=== PATIENT | female | born 1960 | race African-American/Black ===

== ENCOUNTER 2017-07-18 08:57 | Emergency (ER) | payer OTHER ==
[~2017-07-18] VITALS: Ht 167.6 cm; Wt 63.5 kg
[2017-07-18 12:48] LABS: HEMATOCRIT 34.3 % (36.0-46.0); HEMOGLOBIN 11.2 G/DL (11.9-15.5); MCH 30.9 PG (29.0-34.0); MCHC 32.7 G/DL (30.0-36.0); MCV 94.5 FL (83-99); PLATELET COUNT 311 K/uL (156-360); RBC DIS.WIDTH-CV 14.5 % (11.8-14.6); RBC DIS.WIDTH-SD 50.4 % (39-53); RED BLOOD COUNT 3.63 M/uL (3.80-5.20); WHITE BLOOD COUNT 18.4 K/uL (4.1-10.2)
[2017-07-18 13:00] LABS: CHLORIDE 107 mEq/L (99-109); POTASSIUM 4.6 mEq/L (3.7-5.4); SODIUM 141 mEq/L (136-147)
[2017-07-18] MEDS ORDERED: IMITREX6 MG/0.5 M SC (13:01)
[2017-07-18 13:02] LABS: GLUCOSE 120 mg/dL (70-99)
[2017-07-18] MEDS ORDERED: REGLAN5 MG PO (13:02)
[2017-07-18 13:06] LABS: GFR ESTIMATE (CALCULATED) > 59 mL/min/
[2017-07-18 13:07] LABS: UREA NITROGEN (BUN) 16 mg/dL (9-23)
[2017-07-18 13:39] VITALS: BP 112/67
== END 2017-07-18 13:41 | disposition home or self-care (01) ==
LOC: EME 08:57
PROVIDERS: Nurse Practitioner Family
DX: G43.909 Migraine, unspecified, not intractable, without status migrainosus (principal); E78.5 Hyperlipidemia, unspecified; M06.9 Rheumatoid arthritis, unspecified; M79.7 Fibromyalgia; F41.9 Anxiety disorder, unspecified; R73.03 Prediabetes; F17.200 Nicotine dependence, unspecified, uncomplicated; Z88.6 Allergy status to analgesic agent
CPT/HCPCS: 80048; 85027; 99281; 99285; J1200; J1885; J2765; J3030; J7030

== ENCOUNTER 2017-07-22 09:26 | Inpatient (IN) | payer OTHER ==
[~2017-07-22] VITALS: Ht 167.6 cm; Wt 63.4 kg
[~2017-07-22 09:26] MED LIST: IMITREX6 MG/0.5 M SC; REGLAN5 MG PO
[2017-07-22 10:56] LABS: AMPHETAMINE NEGATIVE (500 ng/mL); BARBITURATES NEGATIVE (200 ng/mL); BENZODIAZEPINES NEGATIVE (150 ng/mL); BUPRENORPHINE NEGATIVE (10 ng/mL); COCAINE NEGATIVE (150 ng/mL); METHADONE NEGATIVE (200 ng/mL); METHAMPHETAMINE NEGATIVE (500 ng/mL); OPIATES (MORPHINE) NEGATIVE (100 ng/mL); OXYCODONE NEGATIVE (100 ng/mL); PHENCYCLIDINE NEGATIVE (25 ng/mL); PROPOXYPHENE NEGATIVE (300 ng/mL); THC CANNABINOIDS NEGATIVE (50 ng/mL); TRICYCLIC ANTIDEPRESSANTS NEGATIVE (300 ng/mL)
[2017-07-22 11:03] LABS: APPEARANCE CLEAR ((CLEAR)); BILIRUBIN NEGATIVE; BLOOD NEGATIVE; COLOR YELLOW ((YELLOW)); GLUCOSE (STRIP) NEGATIVE; KETONES NEGATIVE; LEUKOCYTES NEGATIVE; NITRITE NEGATIVE; PROTEIN (STRIP) NEGATIVE; SPECIFIC GRAVITY 1.005 (1.000-1.030)
[2017-07-22 11:05] LABS: HEMATOCRIT 30.4 % (36.0-46.0); HEMOGLOBIN 10.2 G/DL (11.9-15.5); MCH 30.8 PG (29.0-34.0); MCHC 33.6 G/DL (30.0-36.0); MCV 91.8 FL (83-99); PLATELET COUNT 273 K/uL (156-360); RBC DIS.WIDTH-CV 14.6 % (11.8-14.6); RBC DIS.WIDTH-SD 49.3 % (39-53); RED BLOOD COUNT 3.31 M/uL (3.80-5.20); WHITE BLOOD COUNT 19.6 K/uL (4.1-10.2)
[2017-07-22 11:16] LABS: ALBUMIN 3.9 g/dL (3.2-4.8); CHLORIDE 104 mEq/L (99-109); POTASSIUM 4.2 mEq/L (3.7-5.4); SODIUM 137 mEq/L (136-147)
[2017-07-22 11:18] LABS: GLUCOSE 110 mg/dL (70-99); TOTAL PROTEIN 6.7 g/dL (6.4-8.3)
[2017-07-22 11:20] LABS: TOTAL BILIRUBIN 0.5 mg/dL (0.0-1.0)
[2017-07-22 11:21] LABS: SERUM ETHYL ALCOHOL < 10 mg/dL
[2017-07-22 11:22] LABS: ALKALINE PHOSPHATASE 100 IU/L (3-129); CREATININE 1.1 mg/dL (0.6-1.3); GFR ESTIMATE (CALCULATED) > 59 mL/min/
[2017-07-22 11:23] LABS: AST (GOT) 27 IU/L (2-34); UREA NITROGEN (BUN) 19 mg/dL (9-23)
[2017-07-22 11:25] LABS: ALT (GPT) 18 IU/L (3-49)
[2017-07-22] MEDS ORDERED: ZOFRAN4 MG PO (15:01)
[2017-07-22] MEDS ORDERED: BACLOFEN10 MG PO (15:01)
[2017-07-22] MEDS ORDERED: TOPAMAX25 M1 PO (15:01)
[2017-07-22] MEDS ORDERED: REGLAN5 MG PO (15:01)
[2017-07-22] MEDS ORDERED: GABAPENTIN800 MG PO (15:02)
[2017-07-22] MEDS ORDERED: LAMICTAL25 MG PO ×2 (15:02)
[2017-07-22] MEDS ORDERED: ATARAX,VISTARIL50 MG PO (15:02)
[2017-07-22] MEDS ORDERED: CATAPRES0.1 MG PO (15:02)
[2017-07-22] MEDS ORDERED: PREDNISONE5 MG PO (15:03)
[2017-07-22] MEDS ORDERED: SEROQUEL300 MG PO (15:03)
[2017-07-22] MEDS ORDERED: COLACE100 MG PO (15:03)
[2017-07-22] MEDS ORDERED: SULFASALAZINE500 MG PO (15:03)
[2017-07-22] MEDS ORDERED: VITAMIN D10000 UNIT PO (15:03)
[2017-07-22] MEDS ORDERED: CYMBALTA60 MG PO (15:03)
[2017-07-22 21:18] VITALS: BP 107/58
[2017-07-22 23:30] VITALS: BP 98/54
[2017-07-23 03:50] VITALS: BP 100/55
[2017-07-23 06:51] LABS: HEMATOCRIT 32.7 % (36.0-46.0); HEMOGLOBIN 10.3 G/DL (11.9-15.5); MCH 30.2 PG (29.0-34.0); MCHC 31.5 G/DL (30.0-36.0); PLATELET COUNT 265 K/uL (156-360); RBC DIS.WIDTH-CV 14.8 % (11.8-14.6); RBC DIS.WIDTH-SD 51.6 % (39-53); RED BLOOD COUNT 3.41 M/uL (3.80-5.20); WHITE BLOOD COUNT 19.6 K/uL (4.1-10.2)
[2017-07-23 06:52] LABS: MCV 95.9 FL (83-99)
[2017-07-23 07:12] LABS: CHLORIDE 109 MEQ/L (99-109); CREATININE 0.9 MG/DL (0.6-1.3); GFR ESTIMATE (CALCULATED) > 59 mL/min/; GLUCOSE 132 mg/dL (70-99); SODIUM 141 MEQ/L (136-147); UREA NITROGEN (BUN) 17 mg/dL (9-23)
[2017-07-23 07:42] LABS: ERTH.SED.RATE 64 MM/HR (0-30)
[2017-07-23 07:44] VITALS: BP 131/55
[2017-07-23] MEDS ORDERED: BACLOFEN10 MG PO (08:24)
[2017-07-23 11:37] VITALS: BP 113/76
[2017-07-23 15:27] VITALS: BP 116/56
[2017-07-23 19:12] VITALS: BP 114/58
[2017-07-24 04:16] VITALS: BP 123/60
[2017-07-24 07:01] VITALS: BP 123/67
[2017-07-24 11:32] VITALS: BP 117/57
[2017-07-24 15:20] VITALS: BP 134/60
[2017-07-24 19:15] VITALS: BP 134/61
[2017-07-24 23:02] VITALS: BP 139/62
[2017-07-25 03:02] VITALS: BP 104/60
[2017-07-25 09:00] VITALS: BP 138/88
[2017-07-25 11:40] LABS: HEMATOCRIT 32.6 % (36.0-46.0); HEMOGLOBIN 10.8 G/DL (11.9-15.5); MCH 30.9 PG (29.0-34.0); MCHC 33.1 G/DL (30.0-36.0); MCV 93.1 FL (83-99); PLATELET COUNT 311 K/uL (156-360); RBC DIS.WIDTH-CV 14.6 % (11.8-14.6); RBC DIS.WIDTH-SD 50.1 % (39-53); WHITE BLOOD COUNT 15.6 K/uL (4.1-10.2)
[2017-07-25 12:07] LABS: ALBUMIN 3.6 G/DL (3.2-4.8); ALKALINE PHOSPHATASE 105 IU/L (3-129); ALT (GPT) 9 IU/L (3-49); AST (GOT) 9 IU/L (2-34); CHLORIDE 104 MEQ/L (99-109); CREATININE 0.8 MG/DL (0.6-1.3); GFR ESTIMATE (CALCULATED) > 59 mL/min/; GLUCOSE 120 mg/dL (70-99); POTASSIUM 4.3 MEQ/L (3.7-5.4); SODIUM 140 MEQ/L (136-147); TOTAL BILIRUBIN 0.3 MG/DL (0.0-1.0); TOTAL PROTEIN 6.5 G/DL (6.4-8.3); UREA NITROGEN (BUN) 12 mg/dL (9-23)
[2017-07-25 15:48] VITALS: BP 121/61
[2017-07-25 19:18] VITALS: BP 118/64
[2017-07-25 23:38] VITALS: BP 140/65
[2017-07-26 07:36] VITALS: BP 134/73
[2017-07-26] MEDS ORDERED: NICOTINE PATCH1 EAC2 TD (15:21)
[2017-07-26] MEDS ORDERED: CEFTIN500 MG PO (15:21)
== END 2017-07-26 15:43 | disposition home or self-care (01) | DRG 194 ==
LOC: EME 09:26 → 2EAST 17:40 → EDOF 17:40 → ENRESERV 18:17 → 2EAST 19:40
PROVIDERS: Emergency Medicine; Internal Medicine
DX: J18.9 Pneumonia, unspecified organism (principal); F33.9 Major depressive disorder, recurrent, unspecified; G89.4 Chronic pain syndrome; I10 Essential (primary) hypertension; D64.9 Anemia, unspecified; M06.9 Rheumatoid arthritis, unspecified; M79.7 Fibromyalgia; G43.909 Migraine, unspecified, not intractable, without status migrainosus; F41.0 Panic disorder [episodic paroxysmal anxiety]; E78.5 Hyperlipidemia, unspecified; Z90.710 Acquired absence of both cervix and uterus; F17.200 Nicotine dependence, unspecified, uncomplicated; J90 Pleural effusion, not elsewhere classified; Z82.5 Family history of asthma and other chronic lower respiratory diseases
CPT/HCPCS: 70450; 71010; 71020; 71046; 80048; 80053; 81003; 85027; 85651; 86430; 87070; 87086; 87205; 87502; 93005; 94640; 94640 76; 94799; 99281; 99285; G0480; J0456; J0696; J1885; J1956; J3030; J7030; J7512; Q0177

== ENCOUNTER 2017-08-11 17:15 | Emergency (ER) | payer OTHER ==
[~2017-08-11] VITALS: Ht 167.6 cm; Wt 64.7 kg
[~2017-08-11 17:15] MED LIST changes: +ATARAX,VISTARIL50 MG PO; +BACLOFEN10 MG PO; +CATAPRES0.1 MG PO; +CEFTIN500 MG PO; +COLACE100 MG PO; +CYMBALTA60 MG PO; +GABAPENTIN800 MG PO; +LAMICTAL25 MG PO; +NICOTINE PATCH1 EAC2 TD; +PREDNISONE5 MG PO; +SEROQUEL300 MG PO; +SULFASALAZINE500 MG PO; +TOPAMAX25 M1 PO; +VITAMIN D10000 UNIT PO; +ZOFRAN4 MG PO
[2017-08-11] MEDS ORDERED: IMITREX6 MG/0.52 SC (18:42)
[2017-08-11] MEDS ORDERED: BACLOFEN10 MG PO (18:42)
[2017-08-11 19:06] VITALS: BP 118/82
== END 2017-08-11 19:06 | disposition home or self-care (01) ==
LOC: EME 17:15
DX: G43.109 Migraine with aura, not intractable, without status migrainosus (principal); M06.9 Rheumatoid arthritis, unspecified; Z76.0 Encounter for issue of repeat prescription; Z88.6 Allergy status to analgesic agent
CPT/HCPCS: 99281; 99284; J3030

== ENCOUNTER 2017-08-23 08:50 | Emergency (ER) | payer OTHER ==
[~2017-08-23] VITALS: Ht 170.2 cm; Wt 67.2 kg
[~2017-08-23 08:50] MED LIST changes: +IMITREX6 MG/0.52 SC
[2017-08-23 09:33] LABS: HEMATOCRIT 35.8 % (36.0-46.0); HEMOGLOBIN 11.6 G/DL (11.9-15.5); MCH 31.2 PG (29.0-34.0); MCHC 32.4 G/DL (30.0-36.0); MCV 96.2 FL (83-99); PLATELET COUNT 316 K/uL (156-360); RBC DIS.WIDTH-CV 16.2 % (11.8-14.6); RBC DIS.WIDTH-SD 56.5 % (39-53); RED BLOOD COUNT 3.72 M/uL (3.80-5.20); WHITE BLOOD COUNT 16.2 K/uL (4.1-10.2)
[2017-08-23 09:43] LABS: ALBUMIN 4.8 g/dL (3.2-4.8); CHLORIDE 108 mEq/L (99-109); POTASSIUM 3.7 mEq/L (3.7-5.4); SODIUM 141 mEq/L (136-147)
[2017-08-23 09:45] LABS: GLUCOSE 79 mg/dL (70-99); TOTAL PROTEIN 8.7 g/dL (6.4-8.3)
[2017-08-23 09:47] LABS: TOTAL BILIRUBIN 0.3 mg/dL (0.0-1.0)
[2017-08-23 09:49] LABS: ALKALINE PHOSPHATASE 109 IU/L (3-129); CREATININE 1.1 mg/dL (0.6-1.3); GFR ESTIMATE (CALCULATED) > 59 mL/min/
[2017-08-23 09:50] LABS: AST (GOT) 19 IU/L (2-34); UREA NITROGEN (BUN) 17 mg/dL (9-23)
[2017-08-23 09:52] LABS: ALT (GPT) 27 IU/L (3-49)
[2017-08-23 12:51] LABS: APPEARANCE CLEAR ((CLEAR)); BILIRUBIN NEGATIVE; BLOOD NEGATIVE; COLOR YELLOW ((YELLOW)); GLUCOSE (STRIP) NEGATIVE; KETONES NEGATIVE; LEUKOCYTES NEGATIVE; NITRITE NEGATIVE; PROTEIN (STRIP) NEGATIVE; SPECIFIC GRAVITY 1.015 (1.000-1.030); UCUL ADDED? NO; UROBILINOGEN 0.2 MG/DL (0.2-1.0)
[2017-08-23] MEDS ORDERED: BACLOFEN10 MG PO (13:34)
[2017-08-23 13:40] VITALS: BP 121/57
== END 2017-08-23 13:47 | disposition home or self-care (01) ==
LOC: EME 08:50
DX: R51 Headache (principal); M54.5 Low back pain; M79.7 Fibromyalgia; M06.9 Rheumatoid arthritis, unspecified; E78.5 Hyperlipidemia, unspecified; F41.9 Anxiety disorder, unspecified; R73.03 Prediabetes; F17.200 Nicotine dependence, unspecified, uncomplicated; Z88.6 Allergy status to analgesic agent
CPT/HCPCS: 71046; 80053; 81003; 85027; 99281; 99284; J1885; J2765

== ENCOUNTER 2017-09-13 15:12 | Emergency (ER) | payer OTHER ==
[~2017-09-13] VITALS: Ht 167.6 cm; Wt 67.4 kg
[2017-09-13 16:50] LABS: APPEARANCE CLEAR ((CLEAR)); BILIRUBIN NEGATIVE; BLOOD NEGATIVE; COLOR YELLOW ((YELLOW)); GLUCOSE (STRIP) NEGATIVE; KETONES NEGATIVE; LEUKOCYTES NEGATIVE; NITRITE NEGATIVE; PROTEIN (STRIP) 30; SPECIFIC GRAVITY 1.026 (1.000-1.030); UCUL ADDED? NO; UROBILINOGEN 0.2 MG/DL (0.2-1.0)
[2017-09-13 17:12] LABS: HEMATOCRIT 34.7 % (36.0-46.0); HEMOGLOBIN 11.4 G/DL (11.9-15.5); MCH 31.5 PG (29.0-34.0); MCHC 32.9 G/DL (30.0-36.0); MCV 95.9 FL (83-99); PLATELET COUNT 368 K/uL (156-360); RBC DIS.WIDTH-CV 16.6 % (11.8-14.6); RBC DIS.WIDTH-SD 58.5 % (39-53); RED BLOOD COUNT 3.62 M/uL (3.80-5.20); WHITE BLOOD COUNT 12.5 K/uL (4.1-10.2)
[2017-09-13 17:32] LABS: ALBUMIN 4.5 G/DL (3.2-4.8); ALKALINE PHOSPHATASE 86 IU/L (3-129); ALT (GPT) 14 IU/L (3-49); AST (GOT) 18 IU/L (2-34); CHLORIDE 108 MEQ/L (99-109); CREATININE 1.1 MG/DL (0.6-1.3); DIRECT BILIRUBIN 0.1 mg/dL (0.0-0.3); GFR ESTIMATE (CALCULATED) > 59 mL/min/; GLUCOSE 100 mg/dL (70-99); LIPASE 4 U/L (1.0-51.0); SODIUM 141 MEQ/L (136-147); TOTAL BILIRUBIN 0.3 MG/DL (0.0-1.0); TOTAL PROTEIN 7.4 G/DL (6.4-8.3); UREA NITROGEN (BUN) 14 mg/dL (9-23)
[2017-09-13] MEDS ORDERED: ZOFRAN ODT8 MG PO (19:58)
[2017-09-13] MEDS ORDERED: FLONASE16 G1 BOTH NARES (19:58)
[2017-09-13] MEDS ORDERED: MUCINEX D ER T1 EACH PO (19:58)
[2017-09-13] MEDS ORDERED: BENTYL20 MG PO (19:58)
[2017-09-13] MEDS ORDERED: IMITREX6 MG/0.53 SC (19:58)
[2017-09-13] MEDS ORDERED: ZANTAC300 MG PO (20:02)
[2017-09-13] MEDS ORDERED: CEFDINIR300 MG PO (20:04)
[2017-09-13 20:26] VITALS: BP 123/84
== END 2017-09-13 20:27 | disposition home or self-care (01) ==
LOC: EME 15:12
DX: R10.9 Unspecified abdominal pain (principal); R11.0 Nausea; R19.7 Diarrhea, unspecified; G43.909 Migraine, unspecified, not intractable, without status migrainosus; M79.7 Fibromyalgia; M06.9 Rheumatoid arthritis, unspecified; E78.5 Hyperlipidemia, unspecified; R73.03 Prediabetes; F41.9 Anxiety disorder, unspecified; F17.200 Nicotine dependence, unspecified, uncomplicated; Z90.710 Acquired absence of both cervix and uterus; Z88.6 Allergy status to analgesic agent
CPT/HCPCS: 74177; 76705; 80053; 81003; 82248; 83690; 85027; 87651 90; 99281; 99285; J1200; J1885; J2765; J2930; J3030; J7120

== ENCOUNTER 2017-11-28 10:34 | Emergency (ER) | payer OTHER ==
[~2017-11-28] VITALS: Ht 167.6 cm; Wt 74.2 kg
[~2017-11-28 10:34] MED LIST changes: +BENTYL20 MG PO; +CEFDINIR300 MG PO; +FLONASE16 G1 BOTH NARES; +IMITREX6 MG/0.53 SC; +MUCINEX D ER T1 EACH PO; +ZANTAC300 MG PO; +ZOFRAN ODT8 MG PO
[2017-11-28] MEDS ORDERED: REGLAN10 MG PO (12:28)
[2017-11-28] MEDS ORDERED: IMITREX25 MG PO (12:28)
[2017-11-28 14:31] VITALS: BP 145/76
== END 2017-11-28 14:32 | disposition home or self-care (01) ==
LOC: EME 10:34
DX: G43.909 Migraine, unspecified, not intractable, without status migrainosus (principal); E78.5 Hyperlipidemia, unspecified; R73.03 Prediabetes; M79.7 Fibromyalgia; M06.9 Rheumatoid arthritis, unspecified; F17.200 Nicotine dependence, unspecified, uncomplicated; F41.9 Anxiety disorder, unspecified; F41.0 Panic disorder [episodic paroxysmal anxiety]; Z88.6 Allergy status to analgesic agent
CPT/HCPCS: 99281; 99284; J2765; J3030; J7030

== ENCOUNTER 2017-12-07 14:51 | Emergency (ER) | payer OTHER ==
[~2017-12-07] VITALS: Ht 167.6 cm; Wt 72.0 kg
[~2017-12-07 14:51] MED LIST changes: +IMITREX25 MG PO; +REGLAN10 MG PO
[2017-12-07 15:55] VITALS: BP 122/108
== END 2017-12-07 16:03 | disposition home or self-care (01) ==
LOC: EXP 14:51 → EME 14:51 → EXP 16:03
PROC: 2W3DX1Z Immobilization of Left Lower Arm using Splint (ICD-10-PCS; principal; 2017-12-07)
DX: M62.838 Other muscle spasm (principal); M54.12 Radiculopathy, cervical region; Z88.6 Allergy status to analgesic agent
CPT/HCPCS: 99281; 99284; J2060; J8540

== ENCOUNTER 2018-02-25 18:53 | Inpatient (IN) | payer OTHER ==
[~2018-02-25] VITALS: Ht 167.6 cm; Wt 73.9 kg
[2018-02-25 19:31] LABS: HEMATOCRIT 30.8 % (36.0-46.0); HEMOGLOBIN 10.6 G/DL (11.9-15.5); MCH 32.5 PG (29.0-34.0); MCHC 34.4 G/DL (30.0-36.0); MCV 94.5 FL (83-99); PLATELET COUNT 218 K/uL (156-360); RBC DIS.WIDTH-CV 15.9 % (11.8-14.6); RBC DIS.WIDTH-SD 55.2 % (39-53); RED BLOOD COUNT 3.26 M/uL (3.80-5.20); WHITE BLOOD COUNT 11.3 K/uL (4.1-10.2)
[2018-02-25 20:02] LABS: ACETAMINOPHEN (TYLENOL) < 10 MCG/ML (10-30); CHLORIDE 108 MEQ/L (99-109); CREATININE 1.4 MG/DL (0.6-1.3); GFR ESTIMATE (CALCULATED) 50 mL/min/; GLUCOSE 107 mg/dL (70-99); POTASSIUM 4.8 MEQ/L (3.7-5.4); SALICYLATE < 3.0 MG/DL (15-30); SERUM ETHYL ALCOHOL < 10 mg/dL; SODIUM 141 MEQ/L (136-147); UREA NITROGEN (BUN) 17 mg/dL (9-23)
[2018-02-25 20:15] LABS: AMPHETAMINE NEGATIVE (500 ng/mL); BARBITURATES NEGATIVE (200 ng/mL); BENZODIAZEPINES NEGATIVE (150 ng/mL); BUPRENORPHINE NEGATIVE (10 ng/mL); COCAINE NEGATIVE (150 ng/mL); METHADONE NEGATIVE (200 ng/mL); METHAMPHETAMINE NEGATIVE (500 ng/mL); OPIATES (MORPHINE) NEGATIVE (100 ng/mL); OXYCODONE NEGATIVE (100 ng/mL); PHENCYCLIDINE NEGATIVE (25 ng/mL); PROPOXYPHENE NEGATIVE (300 ng/mL); THC CANNABINOIDS NEGATIVE (50 ng/mL); TRICYCLIC ANTIDEPRESSANTS NEGATIVE (300 ng/mL)
[2018-02-26 00:54] LABS: HDL CHOLESTEROL 95 MG/DL (Desirable>=50); LDL CHOLESTEROL 144 mg/dL (Desirable<100); NON-HDL CHOLESTEROL 156 mg/dL (Desirable<160); TOTAL CHOLESTEROL 251 mg/dL (Desirable<200); TRIGLYCERIDES 60 MG/DL (Normal: <150)
[2018-02-26 00:56] VITALS: BP 159/87
[2018-02-26 02:50] VITALS: BP 126/87
[2018-02-26 07:26] VITALS: BP 136/68
[2018-02-26 08:18] LABS: APPEARANCE CLEAR ((CLEAR)); BILIRUBIN NEGATIVE; BLOOD NEGATIVE; COLOR STRAW ((YELLOW)); GLUCOSE (STRIP) NEGATIVE; KETONES NEGATIVE; LEUKOCYTES NEGATIVE; NITRITE NEGATIVE; PROTEIN (STRIP) NEGATIVE; SPECIFIC GRAVITY 1.009 (1.000-1.030); UCUL ADDED? NO; UROBILINOGEN 0.2 MG/DL (0.2-1.0)
[2018-02-26 09:22] LABS: HEMOGLOBIN A1c (GLYCOHEMOGLOB) 5.6 % (Below 5.7)
[2018-02-26 11:11] VITALS: BP 130/69
[2018-02-26] MEDS ORDERED: REGLAN5 MG PO (11:26)
[2018-02-26] MEDS ORDERED: TOPAMAX50 MG PO (11:26)
[2018-02-26] MEDS ORDERED: ZOFRAN4 MG PO (11:27)
[2018-02-26] MEDS ORDERED: CATAPRES0.1 MG PO ×2 (11:27→11:28)
[2018-02-26] MEDS ORDERED: REQUIP1 MG PO (11:27)
[2018-02-26] MEDS ORDERED: NEURONTIN800 MG PO (11:29)
[2018-02-26] MEDS ORDERED: ATARAX,VISTARIL50 MG PO (11:29)
[2018-02-26] MEDS ORDERED: COLACE100 MG PO (11:29)
[2018-02-26] MEDS ORDERED: SEROQUEL100 MG PO ×2 (11:30→11:31)
[2018-02-26] MEDS ORDERED: LAMICTAL150 M1 PO (11:30)
[2018-02-26] MEDS ORDERED: CLOTRIMAZOLE10 MG PO (11:30)
[2018-02-26] MEDS ORDERED: MOTRIN600 MG PO (11:32)
[2018-02-26] MEDS ORDERED: VITAMIN D31000 UNI2 PO (11:35)
[2018-02-26] MEDS ORDERED: BACLOFEN10 MG PO (11:35)
[2018-02-26] MEDS ORDERED: AZULFIDINE500 MG PO (11:35)
[2018-02-26] MEDS ORDERED: IMITREX6 MG/0.5 M SC (11:36)
[2018-02-26] MEDS ORDERED: BENTYL20 MG PO (11:37)
[2018-02-26] MEDS ORDERED: FLONASE16 G1 BOTH NARES (11:37)
[2018-02-26] MEDS ORDERED: ZANTAC300 MG PO (11:38)
[2018-02-26] MEDS ORDERED: IMITREX100 MG PO (11:38)
[2018-02-26] MEDS ORDERED: ROXICODONE5 MG PO (11:39)
[2018-02-26] MEDS ORDERED: FOLIC ACID1 MG PO (11:39)
[2018-02-26] MEDS ORDERED: ULTRACET1 TABLET PO (11:40)
[2018-02-26] MEDS ORDERED: METHOTREXATE2.5 MG PO (11:43)
[2018-02-26] MEDS ORDERED: HUMIRA10 MG/0.1 SC (11:46)
[2018-02-26 15:03] VITALS: BP 133/63
[2018-02-26 20:00] VITALS: BP 116/58
[2018-02-27] VITALS (7 sets, daily range): BP systolic 119–145; BP diastolic 59–83
[2018-02-27 06:03] LABS: HEMATOCRIT 29.9 % (36.0-46.0); HEMOGLOBIN 9.9 G/DL (11.9-15.5); MCHC 33.1 G/DL (30.0-36.0); MCV 96.8 FL (83-99); PLATELET COUNT 186 K/uL (156-360); RBC DIS.WIDTH-CV 16.2 % (11.8-14.6); RBC DIS.WIDTH-SD 57.3 % (39-53); RED BLOOD COUNT 3.09 M/uL (3.80-5.20); WHITE BLOOD COUNT 9.9 K/uL (4.1-10.2)
[2018-02-27 06:41] LABS: ALBUMIN 3.5 G/DL (3.2-4.8); ALKALINE PHOSPHATASE 68 IU/L (3-129); ALT (GPT) 54 IU/L (3-49); AST (GOT) 62 IU/L (2-34); CHLORIDE 111 MEQ/L (99-109); CREATININE 1.2 MG/DL (0.6-1.3); GFR ESTIMATE (CALCULATED) > 59 mL/min/; GLUCOSE 83 mg/dL (70-99); POTASSIUM 4.2 MEQ/L (3.7-5.4); SODIUM 142 MEQ/L (136-147); TOTAL BILIRUBIN 0.2 MG/DL (0.0-1.0); TOTAL PROTEIN 5.4 G/DL (6.4-8.3); UREA NITROGEN (BUN) 15 mg/dL (9-23)
[2018-02-27 10:59] LABS: THYROTROPIN (TSH) 2.4 MIU/L (0.4-5.5)
[2018-02-27 11:24] LABS: FOLIC ACID (FOLATE) 14.6 NG/ML (5.0-22.0)
[2018-02-28 06:36] LABS: ALBUMIN 3.4 G/DL (3.2-4.8); ALKALINE PHOSPHATASE 58 IU/L (3-129); ALT (GPT) 73 IU/L (3-49); AST (GOT) 62 IU/L (2-34); CHLORIDE 111 MEQ/L (99-109); CREATININE 1.1 MG/DL (0.6-1.3); GFR ESTIMATE (CALCULATED) > 59 mL/min/; GLUCOSE 77 mg/dL (70-99); POTASSIUM 4.5 MEQ/L (3.7-5.4); SODIUM 146 MEQ/L (136-147); TOTAL PROTEIN 5.3 G/DL (6.4-8.3); UREA NITROGEN (BUN) 12 mg/dL (9-23)
[2018-02-28 06:43] LABS: TOTAL BILIRUBIN 0.3 MG/DL (0.0-1.0)
[2018-02-28 07:38] VITALS: BP 138/81
[2018-02-28 16:02] VITALS: BP 123/72
[2018-02-28 23:21] VITALS: BP 137/68
[2018-03-01 05:45] LABS: BASOPHIL (%) 0.3 % (0-1); EOSINOPHIL (%) 2.3 % (0-5); EOSINOPHIL COUNT 0.2 K/uL (0-0.3); HEMATOCRIT 34.7 % (36.0-46.0); HEMOGLOBIN 11.6 G/DL (11.9-15.5); IMMATURE GRANULOCYTE (%) 0.3 % (0.0-0.7); LYMPHOCYTE (%) 49.8 % (15-42); LYMPHOCYTE COUNT 3.5 K/uL (1.0-2.8); MCH 31.7 PG (29.0-34.0); MCHC 33.4 G/DL (30.0-36.0); MCV 94.8 FL (83-99); MONOCYTE (%) 1.6 % (3-12); MONOCYTE COUNT 0.1 K/uL (0-0.8); NEUTROPHIL (%) 45.7 % (45-76); NEUTROPHIL COUNT 3.2 K/uL (1.8-6.4); PLATELET COUNT 204 K/uL (156-360); RBC DIS.WIDTH-CV 15.3 % (11.8-14.6); RBC DIS.WIDTH-SD 52.9 % (39-53); RED BLOOD COUNT 3.66 M/uL (3.80-5.20)
[2018-03-01 06:07] LABS: CHLORIDE 110 MEQ/L (99-109); CREATININE 1.2 MG/DL (0.6-1.3); GFR ESTIMATE (CALCULATED) > 59 mL/min/; GLUCOSE 77 mg/dL (70-99); POTASSIUM 4.5 MEQ/L (3.7-5.4); SODIUM 142 MEQ/L (136-147); UREA NITROGEN (BUN) 16 mg/dL (9-23)
[2018-03-01 07:05] VITALS: BP 152/69
[2018-03-01 08:45] LABS: THYROTROPIN (TSH) 1.4 MIU/L (0.4-5.5)
[2018-03-01 15:12] VITALS: BP 127/58
[2018-03-02 00:13] VITALS: BP 122/57
[2018-03-02 08:02] VITALS: BP 138/58
[2018-03-02 17:42] VITALS: BP 121/64
[2018-03-03 00:12] VITALS: BP 96/52
[2018-03-03 05:52] LABS: HEMATOCRIT 35.2 % (36.0-46.0); HEMOGLOBIN 11.8 G/DL (11.9-15.5); MCH 31.6 PG (29.0-34.0); MCHC 33.5 G/DL (30.0-36.0); MCV 94.1 FL (83-99); PLATELET COUNT 209 K/uL (156-360); RBC DIS.WIDTH-CV 14.8 % (11.8-14.6); RBC DIS.WIDTH-SD 51.4 % (39-53); RED BLOOD COUNT 3.74 M/uL (3.80-5.20); WHITE BLOOD COUNT 6.8 K/uL (4.1-10.2)
[2018-03-03 06:15] LABS: ALBUMIN 4.5 G/DL (3.2-4.8); ALKALINE PHOSPHATASE 80 IU/L (3-129); CHLORIDE 107 MEQ/L (99-109); CREATININE 1.2 MG/DL (0.6-1.3); GFR ESTIMATE (CALCULATED) > 59 mL/min/; GLUCOSE 93 mg/dL (70-99); POTASSIUM 3.7 MEQ/L (3.7-5.4); SODIUM 140 MEQ/L (136-147); UREA NITROGEN (BUN) 18 mg/dL (9-23)
[2018-03-03 06:21] LABS: ALT (GPT) 184 IU/L (3-49); AST (GOT) 131 IU/L (2-34); TOTAL BILIRUBIN 0.4 MG/DL (0.0-1.0); TOTAL PROTEIN 6.7 G/DL (6.4-8.3)
[2018-03-03 07:22] LABS: ABS NEUTROPHIL COUNT 3.1; ANISOCYTOSIS 1+; ATYPICAL LYMPHOCYTE 6.9 %; EOSINOPHIL ABS CT 0.2; EOSINOPHILS 3.5 % (0-5.0); LYMPHOCYTES 43.5 % (15.0-45.0); MACROCYTES 1+; PLAT.SUFFICIENCY ADEQUATE; POIKILOCYTOSIS 1+; SEG.NEUTROPHILS 46.1 % (46.0-76.0)
[2018-03-03 07:24] VITALS: BP 129/64
[2018-03-03 15:52] VITALS: BP 130/62
[2018-03-04 00:25] VITALS: BP 115/55
[2018-03-04 07:19] VITALS: BP 136/73
[2018-03-04 15:09] VITALS: BP 134/60
[2018-03-04] MEDS ORDERED: CEPHALEXIN500 MG PO (19:43)
[2018-03-04] MEDS ORDERED: NICOTINE PATCH1 EAC1 TD (19:43)
[2018-03-04] MEDS ORDERED: ASPIR-LOW81 MG PO (19:44)
[2018-03-04] MEDS ORDERED: LIDOCAINE20 MG/1 M5 PO (19:46)
[2018-03-04 21:04] VITALS: BP 114/71
[2018-03-04 23:35] VITALS: BP 96/54
[2018-03-05] MEDS ORDERED: ZANTAC150 MG PO (07:02)
[2018-03-05] MEDS ORDERED: ATORVASTATIN CA40 MG PO (07:03)
[2018-03-05 08:02] VITALS: BP 141/71
[2018-03-05 16:00] VITALS: BP 136/61
[2018-03-05 20:55] VITALS: BP 138/62
[2018-03-06 06:27] LABS: ALKALINE PHOSPHATASE 83 IU/L (3-129); ALT (GPT) 84 IU/L (3-49); CHLORIDE 105 MEQ/L (99-109); CREATININE 1.2 MG/DL (0.6-1.3); GFR ESTIMATE (CALCULATED) > 59 mL/min/; GLUCOSE 103 mg/dL (70-99); POTASSIUM 4.2 MEQ/L (3.7-5.4); SODIUM 140 MEQ/L (136-147); TOTAL PROTEIN 7.2 G/DL (6.4-8.3); UREA NITROGEN (BUN) 19 mg/dL (9-23)
[2018-03-06 06:35] LABS: AST (GOT) 27 IU/L (2-34); TOTAL BILIRUBIN 0.2 MG/DL (0.0-1.0)
[2018-03-06 07:50] VITALS: BP 114/58
[2018-03-06 11:24] LABS: HEPATITIS B SURFACE ANTIGEN Nonreactive; HEPATITIS C ANTIBODY Nonreactive
[2018-03-06 11:26] LABS: ANTI-HEPATITIS A VIRUS (IGM) Nonreactive
[2018-03-06 11:27] LABS: ANTI-HEPATITIS B CORE (IGM) Nonreactive
[2018-03-06 15:21] VITALS: BP 131/64
[2018-03-07 00:25] VITALS: BP 90/57
[2018-03-07 08:05] VITALS: BP 146/80
[2018-03-07 11:19] LABS: ALBUMIN 5.3 G/DL (3.2-4.8); ALKALINE PHOSPHATASE 88 IU/L (3-129); ALT (GPT) 64 IU/L (3-49); AST (GOT) 25 IU/L (2-34); TOTAL PROTEIN 7.8 G/DL (6.4-8.3)
[2018-03-07 11:20] LABS: TOTAL BILIRUBIN 0.4 MG/DL (0.0-1.0)
[2018-03-07 16:24] VITALS: BP 146/80
== END 2018-03-07 18:15 | DRG 442 ==
LOC: EME → EDBD 19:11 → EDOF 23:44 → 3EAST 02-26 00:43 → ENRESERV 02-26 01:27 → 5SOUTH 02-26 02:27
PROVIDERS: Emergency Medicine; Family Medicine; Family Medicine Sports Medicine; Hospitalist; Internal Medicine; Physician Assistant Medical
DX: K72.90 Hepatic failure, unspecified without coma (principal); F05 Delirium due to known physiological condition; T87.44 Infection of amputation stump, left lower extremity; Y83.5 Amputation of limb(s) as the cause of abnormal reaction of the patient, or of later complication, without mention of misadventure at the time of the procedure; T36.95XA Adverse effect of unspecified systemic antibiotic, initial encounter; N17.9 Acute kidney failure, unspecified; F20.9 Schizophrenia, unspecified; G62.9 Polyneuropathy, unspecified; R74.0 Nonspecific elevation of levels of transaminase and lactic acid dehydrogenase [LDH]; I10 Essential (primary) hypertension; M79.7 Fibromyalgia; M06.9 Rheumatoid arthritis, unspecified; G25.81 Restless legs syndrome; F31.9 Bipolar disorder, unspecified; G43.909 Migraine, unspecified, not intractable, without status migrainosus; G89.29 Other chronic pain; M54.5 Low back pain; Z21 Asymptomatic human immunodeficiency virus [HIV] infection status; F17.210 Nicotine dependence, cigarettes, uncomplicated; Z89.422 Acquired absence of other left toe(s)
CPT/HCPCS: 70450; 70551; 72148; 74176; 76705; 80048; 80053; 80061; 80074; 80076; 80175 90; 81003; 82140; 82607; 82746; 82948; 83036; 84443; 85025; 85027; 93005; 97530 GO; 97530 GP; 99281; 99285; G0378; G0480; G8987 GO CM; G8988 GO CJ; J0696; J1650; J1885; J2060; J3030; J3411; J7030; J7050; J8610; Q0177

== ENCOUNTER 2018-03-18 17:04 | Inpatient (IN) | payer OTHER ==
[~2018-03-18] VITALS: Ht 167.6 cm; Wt 64.5 kg
[~2018-03-18 17:04] MED LIST changes: +ASPIR-LOW81 MG PO; +ATORVASTATIN CA40 MG PO; +AZULFIDINE500 MG PO; +CEPHALEXIN500 MG PO; +CLOTRIMAZOLE10 MG PO; +FOLIC ACID1 MG PO; +HUMIRA10 MG/0.1 SC; +IMITREX100 MG PO; +LAMICTAL150 M1 PO; +LIDOCAINE20 MG/1 M5 PO; +METHOTREXATE2.5 MG PO; +MOTRIN600 MG PO; +NEURONTIN800 MG PO; +NICOTINE PATCH1 EAC1 TD; +REQUIP1 MG PO; +ROXICODONE5 MG PO; +SEROQUEL100 MG PO; +TOPAMAX50 MG PO; +ULTRACET1 TABLET PO; +VITAMIN D31000 UNI2 PO; +ZANTAC150 MG PO
[2018-03-18 20:05] LABS: BASOPHIL (%) 0.8 % (0-1); BASOPHIL COUNT 0.1 K/uL (0-0.1); EOSINOPHIL (%) 6.4 % (0-5); EOSINOPHIL COUNT 0.7 K/uL (0-0.3); HEMATOCRIT 32.6 % (36.0-46.0); HEMOGLOBIN 11.1 G/DL (11.9-15.5); IMMATURE GRANULOCYTE (%) 0.2 % (0.0-0.7); LYMPHOCYTE COUNT 5.1 K/uL (1.0-2.8); MCH 32.1 PG (29.0-34.0); MCV 94.2 FL (83-99); MONOCYTE COUNT 0.8 K/uL (0-0.8); NEUTROPHIL (%) 38.6 % (45-76); NEUTROPHIL COUNT 4.2 K/uL (1.8-6.4); PLATELET COUNT 309 K/uL (156-360); RBC DIS.WIDTH-SD 51.1 % (39-53); RED BLOOD COUNT 3.46 M/uL (3.80-5.20); WHITE BLOOD COUNT 10.8 K/uL (4.1-10.2)
[2018-03-18 20:15] LABS: ALBUMIN 4.5 g/dL (3.2-4.8); CHLORIDE 109 mEq/L (99-109); POTASSIUM 3.8 mEq/L (3.7-5.4); SODIUM 142 mEq/L (136-147)
[2018-03-18 20:17] LABS: GLUCOSE 80 mg/dL (70-99)
[2018-03-18 20:19] LABS: TOTAL BILIRUBIN 0.3 mg/dL (0.0-1.0)
[2018-03-18 20:21] LABS: ALKALINE PHOSPHATASE 82 IU/L (3-129); CREATININE 1.1 mg/dL (0.6-1.3); GFR ESTIMATE (CALCULATED) > 59 mL/min/
[2018-03-18 20:22] LABS: UREA NITROGEN (BUN) 12 mg/dL (9-23)
[2018-03-18 20:23] LABS: AST (GOT) 23 IU/L (2-34)
[2018-03-18 20:24] LABS: ALT (GPT) 18 IU/L (3-49)
[2018-03-18 20:26] LABS: TROP-I INTERPRETATION NEGATIVE; TROPONIN-I 0.03 ng/mL (0.0-0.30)
[2018-03-18 20:27] LABS: ERTH.SED.RATE 35 MM/HR (0-30)
[2018-03-18] MEDS ORDERED: LIDOCAINE20 MG/1 M5 PO (22:41)
[2018-03-18] MEDS ORDERED: LIPITOR20 MG PO (22:44)
[2018-03-18] MEDS ORDERED: ERGOCALCIF50000 UNIT PO (22:45)
[2018-03-18] MEDS ORDERED: VITAMIN B COMP1 EACH PO (22:45)
[2018-03-19 00:16] VITALS: BP 143/77
[2018-03-19 04:09] VITALS: BP 127/74
[2018-03-19 06:05] LABS: BASOPHIL (%) 0.6 % (0-1); EOSINOPHIL (%) 0.8 % (0-5); EOSINOPHIL COUNT 0.1 K/uL (0-0.3); HEMATOCRIT 31.5 % (36.0-46.0); HEMOGLOBIN 10.1 G/DL (11.9-15.5); IMMATURE GRANULOCYTE (%) 0.3 % (0.0-0.7); LYMPHOCYTE (%) 24.8 % (15-42); LYMPHOCYTE COUNT 1.8 K/uL (1.0-2.8); MCH 31.1 PG (29.0-34.0); MCHC 32.1 G/DL (30.0-36.0); MCV 96.9 FL (83-99); MONOCYTE (%) 3.4 % (3-12); MONOCYTE COUNT 0.2 K/uL (0-0.8); NEUTROPHIL (%) 70.1 % (45-76); PLATELET COUNT 312 K/uL (156-360); RBC DIS.WIDTH-CV 15.2 % (11.8-14.6); RED BLOOD COUNT 3.25 M/uL (3.80-5.20); WHITE BLOOD COUNT 7.1 K/uL (4.1-10.2)
[2018-03-19 06:27] LABS: CHLORIDE 107 MEQ/L (99-109); CREATININE 1.1 MG/DL (0.6-1.3); GFR ESTIMATE (CALCULATED) > 59 mL/min/; POTASSIUM 4.5 MEQ/L (3.7-5.4); SODIUM 139 MEQ/L (136-147); UREA NITROGEN (BUN) 15 mg/dL (9-23)
[2018-03-19 06:34] LABS: GLUCOSE 162 mg/dL (70-99)
[2018-03-19 07:10] VITALS: BP 100/63
[2018-03-19 12:24] VITALS: BP 122/75
[2018-03-19 14:40] LABS: C DIFF TOXIN POSITIVE (NEGATIVE)
[2018-03-19 15:25] VITALS: BP 134/76
[2018-03-20 00:32] VITALS: BP 126/66
[2018-03-20 07:20] VITALS: BP 132/67
[2018-03-20 15:20] VITALS: BP 128/72
[2018-03-21 01:02] VITALS: BP 123/62
[2018-03-21 06:17] LABS: BASOPHIL (%) 0.2 % (0-1); EOSINOPHIL (%) 0.3 % (0-5); HEMATOCRIT 31.7 % (36.0-46.0); HEMOGLOBIN 10.4 G/DL (11.9-15.5); IMMATURE GRANULOCYTE (%) 2.2 % (0.0-0.7); LYMPHOCYTE (%) 14.8 % (15-42); MCH 31.8 PG (29.0-34.0); MCHC 32.8 G/DL (30.0-36.0); MCV 96.9 FL (83-99); MONOCYTE (%) 7.6 % (3-12); NEUTROPHIL (%) 74.9 % (45-76); NRBC (%) 0.2 /100 WBC (0-0); PLATELET COUNT 247 K/uL (156-360); RBC DIS.WIDTH-CV 15.9 % (11.8-14.6); RED BLOOD COUNT 3.27 M/uL (3.80-5.20); WHITE BLOOD COUNT 13.3 K/uL (4.1-10.2)
[2018-03-21 06:39] LABS: CHLORIDE 111 MEQ/L (99-109); CREATININE 1.2 MG/DL (0.6-1.3); GFR ESTIMATE (CALCULATED) > 59 mL/min/; POTASSIUM 4.2 MEQ/L (3.7-5.4); SODIUM 142 MEQ/L (136-147)
[2018-03-21 06:48] LABS: GLUCOSE 119 mg/dL (70-99); UREA NITROGEN (BUN) 25 mg/dL (9-23)
[2018-03-21 07:32] VITALS: BP 133/73
[2018-03-21 16:46] VITALS: BP 165/72
[2018-03-21 20:41] VITALS: BP 148/87
[2018-03-21 23:41] VITALS: BP 153/68
[2018-03-22 06:37] LABS: BASOPHIL (%) 0.3 % (0-1); BASOPHIL COUNT 0.1 K/uL (0-0.1); EOSINOPHIL (%) 0.3 % (0-5); EOSINOPHIL COUNT 0.1 K/uL (0-0.3); HEMATOCRIT 30.5 % (36.0-46.0); HEMOGLOBIN 10.1 G/DL (11.9-15.5); IMMATURE GRANULOCYTE (%) 3.7 % (0.0-0.7); LYMPHOCYTE (%) 21.5 % (15-42); LYMPHOCYTE COUNT 3.1 K/uL (1.0-2.8); MCH 32.4 PG (29.0-34.0); MCHC 33.1 G/DL (30.0-36.0); MCV 97.8 FL (83-99); MONOCYTE (%) 8.4 % (3-12); MONOCYTE COUNT 1.2 K/uL (0-0.8); NEUTROPHIL (%) 65.8 % (45-76); NEUTROPHIL COUNT 9.6 K/uL (1.8-6.4); NRBC (%) 0.2 /100 WBC (0-0); PLATELET COUNT 246 K/uL (156-360); RBC DIS.WIDTH-CV 16.2 % (11.8-14.6); RBC DIS.WIDTH-SD 58.2 % (39-53); RED BLOOD COUNT 3.12 M/uL (3.80-5.20); WHITE BLOOD COUNT 14.6 K/uL (4.1-10.2)
[2018-03-22 07:03] LABS: CHLORIDE 112 MEQ/L (99-109); CREATININE 1.2 MG/DL (0.6-1.3); GFR ESTIMATE (CALCULATED) > 59 mL/min/; GLUCOSE 165 mg/dL (70-99); POTASSIUM 3.6 MEQ/L (3.7-5.4); SODIUM 142 MEQ/L (136-147); UREA NITROGEN (BUN) 24 mg/dL (9-23)
[2018-03-22 07:27] VITALS: BP 120/60
[2018-03-22 16:08] VITALS: BP 121/61
[2018-03-22 23:59] VITALS: BP 134/76
[2018-03-23 07:23] VITALS: BP 98/75
[2018-03-23] MEDS ORDERED: OPTI-CLEAR15 ML BOTH EYES (14:34)
[2018-03-23] MEDS ORDERED: AUGMENTIN875 MG PO (14:34)
[2018-03-23] MEDS ORDERED: MILLIPRED DP5 M1 PO (14:34)
[2018-03-23] MEDS ORDERED: FAMOTIDINE20 MG PO (14:34)
[2018-03-23] MEDS ORDERED: NICOTINE PATCH1 EAC1 TD (14:34)
== END 2018-03-23 17:35 | disposition home or self-care (01) | DRG 121 ==
LOC: EME 17:04 → EDOF 22:54 → 5EAST 22:54
PROVIDERS: Emergency Medicine; Family Medicine; Family Medicine Sports Medicine
PROC: 0HDNXZZ Extraction of Left Foot Skin, External Approach (ICD-10-PCS; principal; 2018-03-21)
DX: H05.019 Cellulitis of unspecified orbit (principal); A04.72 Enterocolitis due to Clostridium difficile, not specified as recurrent; L03.211 Cellulitis of face; K72.90 Hepatic failure, unspecified without coma; G25.81 Restless legs syndrome; E53.8 Deficiency of other specified B group vitamins; E55.9 Vitamin D deficiency, unspecified; E78.5 Hyperlipidemia, unspecified; G43.009 Migraine without aura, not intractable, without status migrainosus; I10 Essential (primary) hypertension; K21.9 Gastro-esophageal reflux disease without esophagitis; M06.9 Rheumatoid arthritis, unspecified; M79.7 Fibromyalgia; G62.9 Polyneuropathy, unspecified; F31.9 Bipolar disorder, unspecified; F20.9 Schizophrenia, unspecified; F17.210 Nicotine dependence, cigarettes, uncomplicated; Z47.81 Encounter for orthopedic aftercare following surgical amputation; Z89.422 Acquired absence of other left toe(s); Z79.82 Long term (current) use of aspirin; Z87.01 Personal history of pneumonia (recurrent)
CPT/HCPCS: 70496; 71046; 80048; 80053; 83605; 84484; 85025; 85651; 87040; 87493; 87506; 87801; 93005; 99281; 99285; J1200; J1650; J2270; J2543; J2765; J2920; J2930; J3030; J7050; J7512; Q0177; S0028